=== PATIENT | male | born 1955 | race Caucasian/White ===

== ENCOUNTER → 2018-04-18 07:59 | Outpatient (CLI) | payer MEDICARE, MEDICAID, SELFPAY ==
[2018-04-18 08:51] LABS: Hemoglobin A1C 6.1 % (0.0-7.0)
[2018-04-18 09:03] LABS: Alanine Aminotransferase 19 U/L (12-78); Albumin Level 3.3 gm/dL (3.4-5.0); Albumin/Globulin Ratio 0.9 (1.1-1.8); Alkaline Phosphatase 136 U/L (46-116); Anion Gap 9.5 mEq/L (5-15); Aspartate Amino Transferase 10 U/L (15-37); Bilirubin,Total 0.3 mg/dL (0.2-1.0); Blood Urea Nitrogen 17 mg/dL (7-18); Carbon Dioxide 32 mmol/L (21.0-32.0); Chloride 102 mmol/L (98-107); Chol/HDL Ratio 4.4 (1-3.5); Cholesterol 144 mg/dL (140-200); Creatinine,Serum 0.88 mg/dL (0.70-1.30); Estimated Glomerular Filt Rate 88 ml/min (>60); GFR (African American) 107 ML/MIN (>60); Globulin 3.5 gm/dl (1.3-3.2); Glucose 118 mg/dL (74-106); HDL Cholesterol 33 mg/dL (27-67); LDL Cholesterol 70 mg/dL (0-130); Potassium 4.5 mmoL/L (3.5-5.1); Prostate Specific Ag Screen 0.5 ng/mL (0.0-4.0); Sodium 139 mmol/L (136-145); Total Protein,Serum 6.8 gm/dL (6.4-8.2); Triglycerides 205 mg/dL (30-200); VLDL Cholesterol 41 mg/dL (0-40)
== END ==
PROVIDERS: Visit Provider Family Medicine
DX: E78.5 Hyperlipidemia, unspecified (principal); I10 Essential (primary) hypertension; Z12.5 Encounter for screening for malignant neoplasm of prostate; E11.9 Type 2 diabetes mellitus without complications
CPT/HCPCS: 36415; 80053; 80061; 83036; G0103

== ENCOUNTER → 2018-07-04 08:51 | Outpatient (CLI) | payer MEDICARE, MEDICAID, SELFPAY ==
--- NOTE | 2018-07-04 08:56 | US_ITS ---
US Arterial Ankle Brachial Ind History: Leg pain, claudication, hypertension and diabetes with peripheral vascular disease ITS.REASON: skin changes ORDERING PHYSICIAN: Sada De Souza DPM PATIENT AGE: 63 years TECHNIQUE: Segmental pressures obtained of both right and left leg. These are compared to brachial blood pressure to yield index at each level sampled including summary MARTÍN. The data sheets from the procedure are available in PACS FINDINGS Rest study only performed today No prior studies available for comparison. Blood pressures reported are in millimeters mercury. RIGHT LEG MARTÍN = 0.5. RIGHT LEG TBI=0.6 Brachial BP: 133 Thigh BP: 69 Calf BP: 65 Ankle PT: 78 Ankle DP : 61 Digit =85 LEFT LEG MARTÍN = 0.5 LEFT LEG TBI= 0.6 Brachial BPD: 127 Thigh BP: 69 Calf BP: 64 Ankle PT:79 Ankle DP: 60 Digit = 78 Pulses and waveforms: Diminished IMPRESSION: Low bilateral ABIs and TBIs indicating moderate arterial disease.. The pressures are decreased beginning in the thighs on both sides suggesting distal aortic or iliac stenoses which may be confirmed with CTA if clinically warranted.
== END ==
PROVIDERS: Family Provider Family Medicine; PCP Family Medicine; Visit Provider Podiatrist
DX: R23.9 Unspecified skin changes (principal); I73.9 Peripheral vascular disease, unspecified
CPT/HCPCS: 93922